=== PATIENT | female | born 1940 | race Caucasian/White ===

== ENCOUNTER → 2017-02-11 | Outpatient (CLI) | payer MEDICARE, OTHER ==
[2017-02-11 11:05] LABS: BASO # 0.1 x10^3/uL (0.0-0.2); BASO % 1 % (0-3); EOS # 0.5 x10^3/uL (0.0-0.7); EOS % 5 % (0-3); HEMATOCRIT 38.1 % (36.0-47.0); HEMOGLOBIN 12.1 g/dL (12.0-15.5); LYMPH # 1.5 x10^3/uL (1.0-4.8); LYMPH % 14 % (24-48); MEAN CORPUSCULAR HEMOGLOBIN 30 pg (25-35); MEAN CORPUSCULAR HGB CONC 32 g/dL (31-37); MEAN CORPUSCULAR VOLUME 93 fL (79-100); MONO # 0.9 x10^3/uL (0.0-1.1); MONO % 9 % (0-9); NEUT # 7.4 x10^3uL (1.8-7.7); NEUT % 72 % (31-73); PLATELET COUNT 231 x10^3/uL (140-400); RED BLOOD COUNT 4.09 x10^6/uL (3.50-5.40); RED CELL DISTRIBUTION WIDTH 16.2 % (11.5-14.5); WHITE BLOOD COUNT 10.3 x10^3/uL (4.0-11.0)
[2017-02-11 11:14] LABS: ALBUMIN 3.4 g/dL (3.4-5.0); CALCIUM 8.6 mg/dL (8.5-10.1); CREATININE 1.8 mg/dL (0.6-1.0); GFR 27.4; PHOSPHORUS 3.6 mg/dL (2.6-4.7); POTASSIUM 4.2 mmol/L (3.5-5.1)
[2017-02-12 22:08] LABS: CALCIUM PTH 8.7 mg/dL (8.7-10.3); CREATININE PTH 1.63 mg/dL (0.57-1.00); PTH INTACT 94 pg/mL (15-65)
== END | disposition home or self-care (01) ==
LOC: LAB 09:57
PROVIDERS: ATTEND Internal Medicine Nephrology
DX: I12.9 Hypertensive chronic kidney disease with stage 1 through stage 4 chronic kidney disease, or unspecified chronic kidney disease (principal); N18.3 Chronic kidney disease, stage 3 (moderate); N25.81 Secondary hyperparathyroidism of renal origin; E11.21 Type 2 diabetes mellitus with diabetic nephropathy; D63.1 Anemia in chronic kidney disease; Z68.39 Body mass index [BMI] 39.0-39.9, adult
CPT/HCPCS: 36415; 80069; 82728; 83540; 83550; 83970; 85027

== ENCOUNTER → 2017-02-11 | Outpatient (CLI) | payer MEDICARE, OTHER ==
[2017-02-11 11:13] LABS: ALBUMIN 3.4 g/dL (3.4-5.0); CALCIUM 8.6 mg/dL (8.5-10.1); CREATININE 1.8 mg/dL (0.6-1.0); GFR 27.4; POTASSIUM 4.3 mmol/L (3.5-5.1); TOTAL BILIRUBIN 0.4 mg/dL (0.2-1.0); TOTAL PROTEIN 6.7 g/dL (6.4-8.2)
== END | disposition home or self-care (01) ==
LOC: LAB 10:08
PROVIDERS: ATTEND Nurse Practitioner
DX: E78.5 Hyperlipidemia, unspecified (principal)
CPT/HCPCS: 36415; 80053; 80061

== ENCOUNTER → 2017-08-27 | Outpatient (CLI) | payer MEDICARE, OTHER ==
[2017-08-27 15:53] LABS: ALBUMIN 3.5 g/dL (3.4-5.0); CALCIUM 8.9 mg/dL (8.5-10.1); CREATININE 1.7 mg/dL (0.6-1.0); GFR 29.1; MAGNESIUM 2.1 mg/dL (1.8-2.4); PHOSPHORUS 2.9 mg/dL (2.6-4.7); POTASSIUM 4.3 mmol/L (3.5-5.1)
[2017-08-27 15:57] LABS: BASO # 0.1 x10^3/uL (0.0-0.2); BASO % 1 % (0-3); EOS # 0.3 x10^3/uL (0.0-0.7); EOS % 4 % (0-3); HEMATOCRIT 39.3 % (36.0-47.0); HEMOGLOBIN 12.8 g/dL (12.0-15.5); LYMPH # 1.8 x10^3/uL (1.0-4.8); LYMPH % 20 % (24-48); MEAN CORPUSCULAR HEMOGLOBIN 30 pg (25-35); MEAN CORPUSCULAR HGB CONC 33 g/dL (31-37); MEAN CORPUSCULAR VOLUME 92 fL (79-100); MONO # 0.7 x10^3/uL (0.0-1.1); MONO % 8 % (0-9); NEUT % 68 % (31-73); PLATELET COUNT 241 x10^3/uL (140-400); RED BLOOD COUNT 4.28 x10^6/uL (3.50-5.40); RED CELL DISTRIBUTION WIDTH 15.9 % (11.5-14.5); WHITE BLOOD COUNT 8.9 x10^3/uL (4.0-11.0)
[2017-08-28 05:09] LABS: TOTAL SERUM CREATININE 1.66 mg/dL (0.57-1.00); TOTAL URINE CREATININE 67.2 mg/dL (Not Estab.)
[2017-08-28 07:18] LABS: PROTEIN 24 HR UR <51 mg/24 hr (30-150); UR PROTEIN <4.0 mg/dL (Not Estab.)
[2017-08-28 11:12] LABS: CALCIUM PTH 9.1 mg/dL (8.7-10.3); CREATININE PTH 1.69 mg/dL (0.57-1.00); PTH INTACT 79 pg/mL (15-65)
== END | disposition home or self-care (01) ==
LOC: LAB 14:44
PROVIDERS: ATTEND Nurse Practitioner Family
DX: I12.9 Hypertensive chronic kidney disease with stage 1 through stage 4 chronic kidney disease, or unspecified chronic kidney disease (principal); E11.29 Type 2 diabetes mellitus with other diabetic kidney complication; N18.3 Chronic kidney disease, stage 3 (moderate); D63.1 Anemia in chronic kidney disease; N25.81 Secondary hyperparathyroidism of renal origin; D50.9 Iron deficiency anemia, unspecified; Z68.41 Body mass index [BMI] 40.0-44.9, adult
CPT/HCPCS: 36415; 80069; 82306; 82575; 82728; 83540; 83550; 83735; 83970; 84156; 85025

== ENCOUNTER → 2017-09-24 | Outpatient (CLI) | payer MEDICARE, OTHER ==
[2017-09-24 10:38] LABS: ALBUMIN 3.3 g/dL (3.4-5.0); CREATININE 1.7 mg/dL (0.6-1.0); GFR 29.1; POTASSIUM 4.9 mmol/L (3.5-5.1); TOTAL BILIRUBIN 0.4 mg/dL (0.2-1.0); TOTAL PROTEIN 6.6 g/dL (6.4-8.2)
== END | disposition home or self-care (01) ==
LOC: LAB 10:06
PROVIDERS: ATTEND Nurse Practitioner
DX: I12.9 Hypertensive chronic kidney disease with stage 1 through stage 4 chronic kidney disease, or unspecified chronic kidney disease (principal); E11.22 Type 2 diabetes mellitus with diabetic chronic kidney disease; N18.3 Chronic kidney disease, stage 3 (moderate); E78.5 Hyperlipidemia, unspecified
CPT/HCPCS: 36415; 80053; 80061

== ENCOUNTER → 2018-03-05 | Outpatient (CLI) | payer MEDICARE, OTHER ==
[2018-03-05 11:10] LABS: BASO % 1 % (0-3); EOS # 0.4 x10^3/uL (0.0-0.7); EOS % 6 % (0-3); HEMOGLOBIN 12.6 g/dL (12.0-15.5); LYMPH # 1.8 x10^3/uL (1.0-4.8); LYMPH % 23 % (24-48); MEAN CORPUSCULAR HEMOGLOBIN 30 pg (25-35); MEAN CORPUSCULAR HGB CONC 32 g/dL (31-37); MEAN CORPUSCULAR VOLUME 91 fL (79-100); MONO # 0.6 x10^3/uL (0.0-1.1); MONO % 8 % (0-9); NEUT # 4.7 x10^3uL (1.8-7.7); NEUT % 62 % (31-73); PLATELET COUNT 212 x10^3/uL (140-400); RED BLOOD COUNT 4.26 x10^6/uL (3.50-5.40); RED CELL DISTRIBUTION WIDTH 15.7 % (11.5-14.5); WHITE BLOOD COUNT 7.6 x10^3/uL (4.0-11.0)
[2018-03-05 11:37] LABS: ALBUMIN 3.2 g/dL (3.4-5.0); CALCIUM 8.4 mg/dL (8.5-10.1); CREATININE 1.6 mg/dL (0.6-1.0); GFR 31.3; PHOSPHORUS 3.5 mg/dL (2.6-4.7); POTASSIUM 4.6 mmol/L (3.5-5.1)
[2018-03-06 04:12] LABS: CALCIUM PTH 8.4 mg/dL (8.7-10.3); CREATININE PTH 1.53 mg/dL (0.57-1.00); PTH INTACT 73 pg/mL (15-65)
== END | disposition home or self-care (01) ==
LOC: LAB 08:38
PROVIDERS: ATTEND Internal Medicine Nephrology
DX: I12.9 Hypertensive chronic kidney disease with stage 1 through stage 4 chronic kidney disease, or unspecified chronic kidney disease (principal); E11.22 Type 2 diabetes mellitus with diabetic chronic kidney disease; N18.3 Chronic kidney disease, stage 3 (moderate); D63.1 Anemia in chronic kidney disease; N25.81 Secondary hyperparathyroidism of renal origin; E78.5 Hyperlipidemia, unspecified; E78.00 Pure hypercholesterolemia, unspecified; Z68.41 Body mass index [BMI] 40.0-44.9, adult
CPT/HCPCS: 36415; 80069; 82728; 83540; 83550; 83970; 85025

== ENCOUNTER → 2018-03-05 | Outpatient (CLI) | payer MEDICARE, OTHER ==
[2018-03-05 11:33] LABS: ALBUMIN 3.2 g/dL (3.4-5.0); CALCIUM 8.4 mg/dL (8.5-10.1); CREATININE 1.6 mg/dL (0.6-1.0); GFR 31.3; POTASSIUM 4.6 mmol/L (3.5-5.1); TOTAL BILIRUBIN 0.5 mg/dL (0.2-1.0); TOTAL PROTEIN 6.4 g/dL (6.4-8.2)
[2018-03-05 13:40] LABS: FREE T4 1.04 ng/dL (0.76-1.46); THYROID STIM HORMONE (TSH) 4.292 uIU/mL (0.358-3.740)
[2018-03-06 01:20] LABS: HEMOGLOBIN A1C 6.2 % (4.8-5.6)
== END | disposition home or self-care (01) ==
LOC: LAB 08:49
PROVIDERS: ATTEND Nurse Practitioner
DX: E78.5 Hyperlipidemia, unspecified (principal); E03.9 Hypothyroidism, unspecified; E11.9 Type 2 diabetes mellitus without complications; E78.00 Pure hypercholesterolemia, unspecified
CPT/HCPCS: 36415; 80053; 80061; 83036; 84439; 84443

== ENCOUNTER 2018-04-29 15:57 | Inpatient (IN) | payer MEDICARE, OTHER ==
[~2018-04-29] VITALS: Ht 167.6 cm; Wt 124.0 kg
--- NOTE | 2018-04-29 16:04 | PHYS DOC ---
Adult General HPI HPI Patient is a 78-year-old female history of diabetes with an insulin pump hypertension chronic kidney disease stage III who was referred from the primary care doctor's office for shortness of air since Thursday worse today room air sat was 88, treatment in the clinic came up to the low 90s got IM Solu-Medrol currently is coughing up some yellow-colored mucus no chest pain symptoms are moderate slowly worsening with time Review of Systems Review of Systems Constitutional: Night sweats Eyes: Denies change in visual acuity, redness, or eye pain [] Cardiovascular: No additional information not addressed in HPI [] GI: Denies abdominal pain, nausea, vomiting, bloody stools or diarrhea [] Musculoskeletal: Denies back pain or joint pain [] Integument: Denies rash or skin lesions [] All other systems were reviewed and found to be within normal limits, except as documented in this note. Physical Exam Physical Exam Constitutional: Well developed, well nourished, no acute distress, non-toxic appearance. [] HENT: Normocephalic, atraumatic, bilateral external ears normal, oropharynx moist, no oral exudates, nose normal. [] Eyes: PERRLA, EOMI, conjunctiva normal, no discharge. [] Neck: Normal range of motion, no tenderness, supple, no stridor. [] Cardiovascular:Heart rate regular rhythm, no murmur [] Lungs & Thorax: Bilateral wheezing noted with rhonchi. Abdomen: Bowel sounds normal, soft, no tenderness, no masses, no pulsatile masses. [] Skin: Warm, dry, no erythema, no rash. [] Back: No tenderness, no CVA tenderness. [] Extremities: No tenderness, no cyanosis, no clubbing, ROM intact, no edema. [] Neurologic: Alert and oriented X 3, normal motor function, normal sensory function, no focal deficits noted. [] Psychologic: Affect normal, judgement normal, mood normal. [] EKG EKG EKG showed a normal sinus rhythm with a rate of 76 no acute ischemic changes noted interpreted by me time of encounter.[] Radiology/Procedures Radiology/Procedures [] Impressions: omparison: None. Findings: Single view of the chest is submitted. There is no pneumothorax. There is no significant pleural fluid. There is mild hazy opacity at the left lung base and questionably on the right. The pericardial cardiac silhouette is borderline in size. Impression: 1. There is mild hazy opacity at the left lung base and questionably on the right, may be mild edema or infiltrate or atelectasis. Electronically signed by: Sahara Kidd MD (04/29/2018 4:30 PM) [id number] DICTATED AND SIGNED BY: SAHARA KIDD MD DATE: 04/29/18 1626 CC: KRYSTIN WALDEN MD; RUSSELL PILLAI PAC ~ Course & Med Decision Making Course & Med Decision Making Pertinent Labs and Imaging studies reviewed. (See chart for details) noted the x -ray noted creatinine of 1.77 []70-year-old female with a history of hypertension diabetes and chronic kidney disease presenting with shortness of breath with wheezing differential would include bronchitis pneumonia or reactive airway disease occult coronary syndrome pulmonary edema. Chest x-ray shows pneumonia patient given ceftriaxone and doxycycline as well as albuterol she was given gentle fluid hydration. She will be admitted to the service of Dr. dean for treatment of pneumonia with mild hypoxia in the clinic. Dragon Disclaimer Dragon Disclaimer This electronic medical record was generated, in whole or in part, using a voice recognition dictation system. Departure Departure: Impression: Primary Impression: Pneumonia Disposition: ADMITTED INPATIENT Admitting Physician: Theresa Dean Condition: STABLE Referrals: RUSSELL PILLAI PAC (PCP) KRYSTIN WALDEN MD Apr 29, 2018 16:04
[2018-04-29] MEDS ORDERED: IPRATRPIUM/ALBUTEROL 0.5/2.5MG 3 ML NEBU. NEB ONE (16:15)
--- NOTE | 2018-04-29 17:43 | RAD ---
PORTABLE CHEST 1V History: Shortness of air, wheezing Comparison: None. Findings: Single view of the chest is submitted. There is no pneumothorax. There is no significant pleural fluid. There is mild hazy opacity at the left lung base and questionably on the right. The pericardial cardiac silhouette is borderline in size. Impression: 1. There is mild hazy opacity at the left lung base and questionably on the right, may be mild edema or infiltrate or atelectasis. Electronically signed by: Ephraim Villalta MD (04/29/2018 4:30 PM) [id number]
[2018-04-29 17:46] LABS: ALBUMIN 3.5 g/dL (3.4-5.0); ALBUMIN/GLOBULIN RATIO 0.9 (1.0-1.7); CALCIUM 8.7 mg/dL (8.5-10.1); CREATININE 1.8 mg/dL (0.6-1.0); GFR 27.2; POTASSIUM 3.9 mmol/L (3.5-5.1); TOTAL BILIRUBIN 0.3 mg/dL (0.2-1.0); TOTAL PROTEIN 7.2 g/dL (6.4-8.2)
[2018-04-29 17:54] LABS: BASO % 1 % (0-3); EOS # 0.2 x10^3/uL (0.0-0.7); EOS % 3 % (0-3); HEMATOCRIT 40.3 % (36.0-47.0); HEMOGLOBIN 12.8 g/dL (12.0-15.5); LYMPH # 1.7 x10^3/uL (1.0-4.8); LYMPH % 23 % (24-48); MEAN CORPUSCULAR HEMOGLOBIN 30 pg (25-35); MEAN CORPUSCULAR HGB CONC 32 g/dL (31-37); MEAN CORPUSCULAR VOLUME 93 fL (79-100); MONO # 0.7 x10^3/uL (0.0-1.1); MONO % 9 % (0-9); NEUT # 4.8 x10^3uL (1.8-7.7); NEUT % 64 % (31-73); PLATELET COUNT 201 x10^3/uL (140-400); RED BLOOD COUNT 4.35 x10^6/uL (3.50-5.40); RED CELL DISTRIBUTION WIDTH 16.1 % (11.5-14.5); WHITE BLOOD COUNT 7.4 x10^3/uL (4.0-11.0)
--- NOTE | 2018-04-29 17:54 | EKG ---
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
[2018-04-29] MEDS ORDERED: IV DEXTROSE 5% 100 ML IV ONE (18:29)
[2018-04-29] MEDS ORDERED: DOXYCYCLINE HYCLATE 100 MG VIAL IV ONE (18:29)
[2018-04-29] MEDS ORDERED: cefTRIAXone SODIUM 1 GM VIAL IV ONE (18:30)
[2018-04-29] MEDS: DOXYCYCLINE HYCLATE 100 MG in IV DEXTROSE 5% 100 ML IV SCH (18:36)
[2018-04-29] MEDS: cefTRIAXone IV Push 1 GM VIAL. IVP SCH (18:36)
[2018-04-29 20:15] VITALS: BP 148/79
[2018-04-29] MEDS ORDERED: DEXTROSE 50% 25 GM / 50ML DISP.SYRIN. IV PRN (20:15)
[2018-04-29] MEDS ORDERED: INSULIN LISPRO 300 UNITS/3 ML INSULN.PEN. SQ SCH (20:30)
[2018-04-29] MEDS: IPRATRPIUM/ALBUTEROL 0.5/2.5MG 3 ML NEBU. NEB SCH (20:57)
[2018-04-29] MEDS ORDERED: LEVO75TA5 PO (21:00)
[2018-04-29] MEDS: SIMVASTATIN 20 MG TABLET PO SCH (21:00)
[2018-04-29] MEDS ORDERED: SIMV20TA3 PO (21:00)
[2018-04-29] MEDS ORDERED: PANT40TA5 PO (21:00)
[2018-04-29] MEDS ORDERED: ESCI20TA2 PO (21:00)
[2018-04-29] MEDS ORDERED: VALS1TAB27 PO (21:00)
[2018-04-29] MEDS ORDERED: ALLO100T PO (21:00)
[2018-04-29] MEDS: IV NORMAL SALINE 1,000ML 1,000 ML IV SCH (21:09)
[2018-04-29 22:34] VITALS: BP 136/75
[2018-04-30] MEDS: IPRATRPIUM/ALBUTEROL 0.5/2.5MG 3 ML NEBU. NEB SCH ×4 (05:15→20:04)
[2018-04-30] MEDS: LEVOTHYROXINE 75 MCG TABLET PO SCH (05:35)
[2018-04-30 05:56] VITALS: BP 119/68
[2018-04-30] MEDS: DOXYCYCLINE HYCLATE 100 MG in IV DEXTROSE 5% 100 ML IV SCH (06:16)
[2018-04-30 06:52] LABS: BASO % 0 % (0-3); EOS % 0 % (0-3); HEMATOCRIT 35.9 % (36.0-47.0); HEMOGLOBIN 11.7 g/dL (12.0-15.5); LYMPH # 0.8 x10^3/uL (1.0-4.8); LYMPH % 12 % (24-48); MEAN CORPUSCULAR HEMOGLOBIN 30 pg (25-35); MEAN CORPUSCULAR HGB CONC 33 g/dL (31-37); MEAN CORPUSCULAR VOLUME 93 fL (79-100); MONO # 0.2 x10^3/uL (0.0-1.1); MONO % 2 % (0-9); NEUT # 5.6 x10^3uL (1.8-7.7); NEUT % 85 % (31-73); PLATELET COUNT 179 x10^3/uL (140-400); RED BLOOD COUNT 3.88 x10^6/uL (3.50-5.40); WHITE BLOOD COUNT 6.5 x10^3/uL (4.0-11.0)
[2018-04-30 07:08] LABS: CALCIUM 8.5 mg/dL (8.5-10.1); CREATININE 1.7 mg/dL (0.6-1.0); GFR 29.1
[2018-04-30] MEDS: PANTOPRAZOLE 40 MG TABLET. PO SCH (08:30)
[2018-04-30] MEDS ORDERED: ASPI-630 PO (08:31)
[2018-04-30] MEDS: CITALOPRAM 20 MG TABLET. PO SCH (08:58)
[2018-04-30] MEDS: ACETAMINOPHEN 325 MG TABLET PO PRN ×2 (08:58→20:47)
[2018-04-30] MEDS: ASPIRIN 81 MG TAB.CHEW PO SCH (08:59)
[2018-04-30] MEDS: ALLOPURINOL 100 MG TABLET. PO SCH (08:59)
[2018-04-30] MEDS ORDERED: LOSARTAN 50 MG TABLET. PO SCH (09:00)
[2018-04-30] MEDS ORDERED: hydroCHLOROthiazide 12.5 MG CAPSULE PO SCH (09:00)
[2018-04-30] MEDS ORDERED: HYDROCHLOROTHIAZIDE PO SCH (09:00)
[2018-04-30] MEDS ORDERED: [UNRECOGNIZED DRUG - OTHER] PO SCH (09:00)
[2018-04-30] MEDS ORDERED: VALSARTAN PO SCH (09:00)
[2018-04-30 11:00] VITALS: BP 145/80
[2018-04-30] MEDS: IV NORMAL SALINE 1,000ML 1,000 ML IV SCH (13:04)
[2018-04-30] MEDS ORDERED: DEXTROSE 50% 25 GM / 50ML DISP.SYRIN. IV PRN (13:15)
--- NOTE | 2018-04-30 14:04 | HP ---
ADMIT DATE: 04/30/2018 HISTORY OF PRESENT ILLNESS: The patient is a 78-year-old female patient, who has been complaining of shortness of breath, chest pain and cough that is mostly dry as well as chest tightness and wheezing since last Thursday. Her symptoms have been steadily worsening. She was seen yesterday where her oxygen saturation was found to be only 88%. She was given intramuscular Solu-Medrol and was sent to the Emergency Room for evaluation and admission. In the Emergency Room, she apparently has had chest x-ray, which showed that there is mild hazy opacity at the left lung base and questionably on the right, which could be mild edema or infiltrate or atelectasis and she was admitted and was started on IV ceftriaxone as well as oral doxycycline. Her together with all other medication as her kidney function were abnormal we held some of her medication. PAST MEDICAL HISTORY: Significant for type 2 diabetes mellitus, hypertension, hyperlipidemia, hypothyroidism, gout, stage 4 chronic kidney disease and generalized osteoarthritis. PAST SURGICAL HISTORY: Significant for back surgery in 1999. She has also appendectomy. ALLERGIES: She has no known drug allergies. MEDICATIONS: She is currently on following medications: Simvastatin 20 mg at bedtime. She is on valsartan/hydrochlorothiazide 160/12.5 mg daily, aspirin 81 mg once a day, escitalopram oxalate 20 mg daily, Protonix 40 mg daily, levothyroxine sodium 75 mcg daily and allopurinol 100 mg once a day. FAMILY HISTORY: She is an only child, has no brothers or sisters. Her mother at age of 83. She does not know her biological father, but she knows that he is . SOCIAL HISTORY: She is for the last 59 years. She lives with her . She has 3 daughters. She has never smoked and drinks 2-3 glasses of wine every day. 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 REVIEW OF SYSTEMS: The patient denied any blurring of vision, cataract, glaucoma or macular degeneration. Denied any earache, tinnitus or sensorineural deafness. Denied any nosebleeds, stuffy nose or postnasal drip. Denied any sore throat, sore tongue, toothache, hoarseness of voice or difficulty swallowing. Denied any nausea, vomiting, diarrhea or constipation. Denied any hematemesis, melena or hematochezia. Denied any dysuria, frequency or hematuria. She did complain of chest pain during coughing. Did complain of shortness of breath, cough, which is mostly dry. Denied any scanty yellowish sputum. Denied any hemoptysis. Denied any chills, rigors or fever. PHYSICAL EXAMINATION: GENERAL: On arrival to the Emergency Room; she was slightly tachypneic, but there was no pallor, jaundice, cyanosis, or thyromegaly. No jugular venous distension. No limb edema. VITAL SIGNS: Her heart rate was 77, blood pressure 151/46, temperature was 98.6, respiratory rate and her oxygen saturation was 95% on room air. HEAD, EYES, EARS, NOSE AND THROAT: Showed normocephalic, atraumatic. NECK: Supple. HEART: Showed normal first and second heart sounds. No gallop, rub or murmur. CHEST: Shows central trachea, equal bilateral expansion, air entry, vesicular sounds with diffuse scattered rhonchi and crepitation mostly in the left side posteriorly. ABDOMEN: Distended, soft, nontender. No guarding or rigidity. No organomegaly. All hernial orifice intact. Bowel sounds normal. NEUROLOGIC: She is hard of hearing, but otherwise all cranial nerves intact. EXTREMITIES: She moves extremities without difficulty. She ambulates without assistance or assistive device. LABORATORY DATA: On admission showed that her white cell count was 7400, hemoglobin 13, hematocrit 40, MCV 93, and platelet count 201,000 with normal manual differential. Her serum sodium was 138, potassium 3.9, chloride 102, bicarbonate 26, anion gap of 10, BUN 23, creatinine 1.8, estimated GFR was 27 mL per minute. Her glucose was 378, calcium was 8.7. Total bilirubin, AST, ALT, alkaline phosphatase were normal. Her beta natriuretic peptide was 998. Total protein was 7.2, albumin was 3.5. Her prothrombin time was 9.6, INR of 0.9. IMPRESSION: The patient was basically admitted with left lower lobe pneumonia, community acquired, was started on Rocephin and doxycycline. She is known to have chronic renal failure, followed by Dr. Tamayo. She has type 2 diabetes mellitus, controlled on insulin infusion pump. PLAN: My plan is to continue with IV antibiotic. Continue with all her medication. We will hold the hydrochlorothiazide as well as valsartan for now. Continue with bronchodilator and perhaps nebulized Pulmicort. She did receive Solu-Medrol intramuscular yesterday and this is probably that what drives her blood sugar to be extremely high. We will basically discontinue her insulin infusion pump and was started on insulin sliding scale before meals and once she is home, she can go back on her insulin infusion pump. KAMINI WOODWARD MD DR: MIRTHA/camilla JOB#: [id number] / [id number]
[2018-04-30 14:39] VITALS: BP 118/65
[2018-04-30] MEDS ORDERED: INSULIN LISPRO 300 UNITS/3 ML INSULN.PEN. SQ SCH (17:00)
[2018-04-30] MEDS: INSULIN LISPRO 300 UNITS/3 ML INSULN.PEN. SQ SCH ×2 (17:02→20:53)
[2018-04-30 19:21] VITALS: BP 121/69
[2018-04-30] MEDS: cefTRIAXone IV Push 1 GM VIAL. IVP SCH (19:21)
[2018-04-30] MEDS: BUDESONIDE 0.5 MG/2 ML NEBU NEB SCH (20:04)
[2018-04-30] MEDS: LACTOBACILLUS RHAMNOSUS GG 1 CAPSULE. PO SCH (20:47)
[2018-04-30] MEDS: DOXYCYCLINE HYCLATE 100 MG TABLET PO SCH (20:47)
[2018-04-30] MEDS: MONTELUKAST 10 MG TABLET. PO SCH (20:47)
[2018-04-30] MEDS: SIMVASTATIN 20 MG TABLET PO SCH (20:47)
[2018-04-30 22:14] VITALS: BP 123/67
--- NOTE | 2018-04-30 22:33 | PN ---
DATE: 04/30/2018 SUBJECTIVE: This is a 78-year-old female patient who was seen at her primary care physician's office yesterday with a complaint of cough and shortness of breath with chest tightness. She was given Solu-Medrol intramuscular and was sent to the Emergency Room, where she was evaluated and was found to have left lower lobe pneumonia, was admitted for inpatient treatment with IV antibiotic in the form of Rocephin and doxycycline. She is known to have type 2 diabetes for which she is on insulin infusion pump. Unfortunately, her blood sugar became extremely high because of the steroids. In fact, by the time she arrived here, her blood sugar was 378 mg/dL and as of last night, her blood sugar went up to 569. She continued to have cough with scanty yellowish sputum, did have chest pain during coughing episodes, mostly in the costal margin. PHYSICAL EXAMINATION: GENERAL: When I examined her this afternoon, she looked well and was clearly in no apparent respiratory distress. There was no pallor, jaundice, cyanosis, or thyromegaly. No jugular venous distension. No limb edema. VITAL SIGNS: Her heart rate was 100, blood pressure 145/80, temperature was 98.2, respiratory rate 20, and oxygen saturation was 95% on room air. HEAD, EYES, EARS, NOSE AND THROAT: Showed normocephalic, atraumatic. NECK: Supple. HEART: Showed normal first and second heart sounds with no gallop, rub or murmur. CHEST: Shows central trachea, equal bilateral chest expansion, air entry, vesicular sounds with crepitation mostly in the left side posteriorly, she has scattered rhonchi. ABDOMEN: Distended, soft, nontender. NEUROLOGIC: She is hard of hearing. Otherwise, her cranial nerves are intact. She moves her extremities without difficulty. She ambulates without assistance or assistive devices. LABORATORY DATA: This morning showed a serum sodium 138, potassium 4, chloride 103, bicarbonate 24, anion gap of 11, BUN 31, creatinine 1.7, estimated GFR was 29 mL per minute. Her glucose was 408, calcium was 8.5. Her white cell count was 6500, hemoglobin 11.7, hematocrit 36, MCV 93, and platelet count of 179,000. Her prothrombin time was 9.6, INR of 0.9. IMPRESSION: In summary, this is a 78-year-old female patient who came in with community-acquired pneumonia. X-ray showed she has left lower lobe pneumonia with a lesser extent right lower lobe infiltrate. She was admitted and was started on antibiotic in the form of Rocephin and doxycycline for community-acquired pneumonia. She has multiple other medical problems including: A. Stage 4 chronic kidney disease. Her creatinine is 1.8.. B. Type 2 diabetes mellitus, extremely poorly controlled due to the fact that she received intramuscular Solu-Medrol. In fact, last night, her blood sugar was almost 600. I did actually ask to stop using her infusion pump and will take control of her blood sugar. I did start her on 15 units of NovoLog insulin before meals, together with sliding scale insulin. We might have to give her Levemir insulin at night time. C. Hypertension. D. Osteoarthritis. I will continue to hold her valsartan and hydrochlorothiazide as she has chronic kidney disease. I will also discontinue her IV fluids for the time being. I will repeat all her lab work tomorrow and decide on further management accordingly. KAMINI WOODWARD MD DR: MIRTHA/camilla JOB#: [id number] / [id number]
[2018-05-01] MEDS: LEVOTHYROXINE 75 MCG TABLET PO SCH (05:14)
[2018-05-01] MEDS: IPRATRPIUM/ALBUTEROL 0.5/2.5MG 3 ML NEBU. NEB SCH ×4 (05:17→21:03)
[2018-05-01 05:45] VITALS: BP 97/50
[2018-05-01 06:13] LABS: HEMATOCRIT 34.2 % (36.0-47.0); HEMOGLOBIN 10.9 g/dL (12.0-15.5); RED BLOOD COUNT 3.64 x10^6/uL (3.50-5.40); RED CELL DISTRIBUTION WIDTH 16.7 % (11.5-14.5)
[2018-05-01 06:37] LABS: WHITE BLOOD COUNT 12.7 x10^3/uL (4.0-11.0)
[2018-05-01 06:51] LABS: CALCIUM 8.2 mg/dL (8.5-10.1); CREATININE 2.1 mg/dL (0.6-1.0); GFR 22.8; POTASSIUM 4.2 mmol/L (3.5-5.1); TOTAL BILIRUBIN 0.3 mg/dL (0.2-1.0); TOTAL PROTEIN 5.9 g/dL (6.4-8.2)
[2018-05-01] MEDS: PANTOPRAZOLE 40 MG TABLET. PO SCH (07:40)
[2018-05-01] MEDS: ALLOPURINOL 100 MG TABLET. PO SCH (07:40)
[2018-05-01] MEDS: DOXYCYCLINE HYCLATE 100 MG TABLET PO SCH ×2 (07:40→20:29)
[2018-05-01] MEDS: ASPIRIN 81 MG TAB.CHEW PO SCH (07:40)
[2018-05-01] MEDS: CITALOPRAM 20 MG TABLET. PO SCH (07:40)
[2018-05-01] MEDS: LACTOBACILLUS RHAMNOSUS GG 1 CAPSULE. PO SCH ×2 (07:40→20:29)
[2018-05-01] MEDS: INSULIN LISPRO 300 UNITS/3 ML INSULN.PEN. SQ SCH ×5 (07:44→16:30)
[2018-05-01] MEDS: ACETAMINOPHEN 325 MG TABLET PO PRN ×2 (08:45→20:29)
[2018-05-01] MEDS ORDERED: IV NORMAL SALINE 1,000ML 1,000 ML IV ONE (10:15)
[2018-05-01] MEDS ORDERED: INSULIN LISPRO 300 UNITS/3 ML INSULN.PEN. SQ ONE ×2 (10:15→23:45)
[2018-05-01] MEDS: BUDESONIDE 0.5 MG/2 ML NEBU NEB SCH ×2 (10:30→21:03)
[2018-05-01 11:00] VITALS: BP 143/89
[2018-05-01] MEDS ORDERED: IV NORMAL SALINE 1,000ML 1,000 ML IV SCH (15:20)
[2018-05-01] MEDS ORDERED: ALBUTEROL SULFATE 2.5 MG/3 ML NEBU. NEB PRN (15:30)
[2018-05-01 16:00] VITALS: BP 118/71
[2018-05-01] MEDS ORDERED: INSULIN LISPRO 300 UNITS/3 ML INSULN.PEN. SQ SCH (17:00)
[2018-05-01] MEDS: cefTRIAXone IV Push 1 GM VIAL. IVP SCH (17:59)
--- NOTE | 2018-05-01 18:31 | PDOC ---
SUBJECTIVE: 78 y/o F admitted to the floor with LLL pneumonia and uncontrolled DM2. She'd been having about a week of nonproductive cough with wheezing and ALBRIGHT. Hypoxic at her doctor's office 88% on RA she was given IM solu-medrol causing elevated glucose uncontrolled with her insulin pump. She was admitted and started on IV antibiotics/fluids, as well as sliding scale insulin. RN called me at home this am to report glucose 496, I increased her SSI at lunchtime and added 1L NS IV bolus due to decreased report of urination. This afternoon I find patient sitting up in bed laughing and visiting with three family members. She reports that the fluids and tighter glycemic control have her feeling better. She says she typically has much more lower extremity edema than at present and had decreased urination yesterday. She is still very wheezy and not bringing anything up with cough, denies any new complaints. Says she finally feels "back to normal." She has remained afebrile and O2sats mid 90's on RA. OBJECTIVE: Problems: Problems Medical Problems: (1) Pneumonia Status: Acute WBC elevated overnight 12.7 from 6.5 one day prior. BUN 47, Cr 2.1 up from BUN 31, Cr 1.7 day prior. Vital Signs: Vital Signs Date Time Temp Pulse Resp B/P (MAP) Pulse Ox O2 Delivery O2 Flow Rate FiO2 05/01/18 16:21 96 Room Air 05/01/18 16:00 98.0 85 20 118/71 (87) I & O Intake and Output 05/01/18 06:59 Intake Total 2034 ml Balance 2034 ml Intake Oral 860 ml IV Total 1174 ml # Voids 6 Labs: Laboratory Tests Test 04/29/18 20:11 04/29/18 23:29 04/30/18 06:13 04/30/18 07:41 Glucose (Fingerstick) 569 mg/dL (70-99) 582 mg/dL (70-99) 420 mg/dL (70-99) White Blood Count 6.5 x10^3/uL (4.0-11.0) Red Blood Count 3.88 x10^6/uL (3.50-5.40) Hemoglobin 11.7 g/dL (12.0-15.5) Hematocrit 35.9 % (36.0-47.0) Mean Corpuscular Volume 93 fL (79-100) Mean Corpuscular Hemoglobin 30 pg (25-35) Mean Corpuscular Hemoglobin Concent 33 g/dL (31-37) Red Cell Distribution Width 16.0 % (11.5-14.5) Platelet Count 179 x10^3/uL (140-400) Neutrophils (%) (Auto) 85 % (31-73) Lymphocytes (%) (Auto) 12 % (24-48) Monocytes (%) (Auto) 2 % (0-9) Eosinophils (%) (Auto) 0 % (0-3) Basophils (%) (Auto) 0 % (0-3) Neutrophils # (Auto) 5.6 x10^3uL (1.8-7.7) Lymphocytes # (Auto) 0.8 x10^3/uL (1.0-4.8) Monocytes # (Auto) 0.2 x10^3/uL (0.0-1.1) Eosinophils # (Auto) 0.0 x10^3/uL (0.0-0.7) Basophils # (Auto) 0.0 x10^3/uL (0.0-0.2) Sodium Level 138 mmol/L (136-145) Potassium Level 4.0 mmol/L (3.5-5.1) Chloride Level 103 mmol/L (98-107) Carbon Dioxide Level 24 mmol/L (21-32) Anion Gap 11 (6-14) Blood Urea Nitrogen 31 mg/dL (7-20) Creatinine 1.7 mg/dL (0.6-1.0) Estimated GFR (Cockcroft-Gault) 29.1 Glucose Level 408 mg/dL (70-99) Calcium Level 8.5 mg/dL (8.5-10.1) Test 04/30/18 11:45 04/30/18 16:28 04/30/18 20:28 05/01/18 05:40 Glucose (Fingerstick) 485 mg/dL (70-99) 375 mg/dL (70-99) 328 mg/dL (70-99) White Blood Count 12.7 x10^3/uL (4.0-11.0) Red Blood Count 3.64 x10^6/uL (3.50-5.40) Hemoglobin 10.9 g/dL (12.0-15.5) Hematocrit 34.2 % (36.0-47.0) Mean Corpuscular Volume 94 fL (79-100) Mean Corpuscular Hemoglobin 30 pg (25-35) Mean Corpuscular Hemoglobin Concent 32 g/dL (31-37) Red Cell Distribution Width 16.7 % (11.5-14.5) Platelet Count 183 x10^3/uL (140-400) Sodium Level 139 mmol/L (136-145) Potassium Level 4.2 mmol/L (3.5-5.1) Chloride Level 104 mmol/L (98-107) Carbon Dioxide Level 26 mmol/L (21-32) Anion Gap 9 (6-14) Blood Urea Nitrogen 47 mg/dL (7-20) Creatinine 2.1 mg/dL (0.6-1.0) Estimated GFR (Cockcroft-Gault) 22.8 BUN/Creatinine Ratio 22 (6-20) Glucose Level 436 mg/dL (70-99) Calcium Level 8.2 mg/dL (8.5-10.1) Total Bilirubin 0.3 mg/dL (0.2-1.0) Aspartate Amino Transf (AST/SGOT) 28 U/L (15-37) Alanine Aminotransferase (ALT/SGPT) 24 U/L (14-59) Alkaline Phosphatase 91 U/L (46-116) Total Protein 5.9 g/dL (6.4-8.2) Albumin 3.0 g/dL (3.4-5.0) Albumin/Globulin Ratio 1.0 (1.0-1.7) Thyroid Stimulating Hormone (TSH) 3.379 uIU/mL (0.358-3.740) Test 05/01/18 07:38 05/01/18 09:47 05/01/18 10:30 05/01/18 11:03 Glucose (Fingerstick) 496 mg/dL (70-99) 541 mg/dL (70-99) 440 mg/dL (70-99) Glucose Level 496 mg/dL (70-99) Test 05/01/18 11:59 05/01/18 13:59 05/01/18 17:17 Glucose (Fingerstick) 379 mg/dL (70-99) 219 mg/dL (70-99) 42 mg/dL (70-99) Physical Exam: GEN: NAD, AOx3, sitting up laughing/visiting with family HEENT: NCAT, dry membranes oral mucosa pink, nares patent NECK: supple, nontender no rigidity or lymphadenopathy CVS: regular rate, no murmurs PULM: coarse BS with wheezes diffusely, fair air movement no respiratory distress EXT: no clubbing or cyanosis, trace pitting LE edema NEURO: CN II-XII grossly intact, no lateralizing neurodeficits ASSESSMENT: 1. Lower lobe pneumonia bilaterally 2. DM2 Uncontrolled 3. PASCALE with dehydration PLAN: Continue IV antibiotics and fluids. Increase SSI, prn albuterol nebulizer treatments added. Patient encouraged to get up in chair, ambulate frequently with assistance. Follow FSBS and am labs. SAHARA CHAO DO May 01, 2018 18:31
[2018-05-01 19:06] VITALS: BP 128/74
[2018-05-01] MEDS: SIMVASTATIN 20 MG TABLET PO SCH (20:29)
[2018-05-01] MEDS: MONTELUKAST 10 MG TABLET. PO SCH (20:29)
[2018-05-01 23:05] VITALS: BP 120/68
[2018-05-02] VITALS (12 sets, daily range): BP systolic 102–183; BP diastolic 52–89
[2018-05-02] MEDS: LEVOTHYROXINE 75 MCG TABLET PO SCH (05:14)
[2018-05-02] MEDS: ACETAMINOPHEN 325 MG TABLET PO PRN ×2 (05:14→21:34)
[2018-05-02] MEDS: IPRATRPIUM/ALBUTEROL 0.5/2.5MG 3 ML NEBU. NEB SCH ×4 (05:29→20:00)
[2018-05-02 06:39] LABS: BASO % 0 % (0-3); EOS # 0.2 x10^3/uL (0.0-0.7); EOS % 2 % (0-3); HEMATOCRIT 34.2 % (36.0-47.0); HEMOGLOBIN 10.8 g/dL (12.0-15.5); LYMPH # 1.9 x10^3/uL (1.0-4.8); LYMPH % 14 % (24-48); MEAN CORPUSCULAR HEMOGLOBIN 30 pg (25-35); MEAN CORPUSCULAR HGB CONC 32 g/dL (31-37); MEAN CORPUSCULAR VOLUME 94 fL (79-100); MONO % 7 % (0-9); NEUT # 10.2 x10^3uL (1.8-7.7); NEUT % 77 % (31-73); PLATELET COUNT 185 x10^3/uL (140-400); RED BLOOD COUNT 3.65 x10^6/uL (3.50-5.40); RED CELL DISTRIBUTION WIDTH 16.8 % (11.5-14.5); WHITE BLOOD COUNT 13.4 x10^3/uL (4.0-11.0)
[2018-05-02 06:50] LABS: ALBUMIN 2.9 g/dL (3.4-5.0); CALCIUM 8.2 mg/dL (8.5-10.1); CREATININE 1.9 mg/dL (0.6-1.0); GFR 25.6; POTASSIUM 4.2 mmol/L (3.5-5.1); TOTAL BILIRUBIN 0.3 mg/dL (0.2-1.0); TOTAL PROTEIN 5.8 g/dL (6.4-8.2)
[2018-05-02] MEDS: DOXYCYCLINE HYCLATE 100 MG TABLET PO SCH ×2 (08:15→21:29)
[2018-05-02] MEDS: PANTOPRAZOLE 40 MG TABLET. PO SCH (08:15)
[2018-05-02] MEDS: ALLOPURINOL 100 MG TABLET. PO SCH (08:15)
[2018-05-02] MEDS: ASPIRIN 81 MG TAB.CHEW PO SCH (08:15)
[2018-05-02] MEDS: CITALOPRAM 20 MG TABLET. PO SCH (08:16)
[2018-05-02] MEDS: LACTOBACILLUS RHAMNOSUS GG 1 CAPSULE. PO SCH ×2 (08:17→21:29)
[2018-05-02] MEDS: INSULIN LISPRO 300 UNITS/3 ML INSULN.PEN. SQ SCH ×5 (08:18→18:54)
[2018-05-02] MEDS ORDERED: INSULIN REGULAR VIAL 150 UNIT in 0.9 % SODIUM CHLORIDE 150ML 150 ML IV ONE (09:30)
[2018-05-02] MEDS ORDERED: ELECTROLYTE (ICU) PROTOCOL. MC PRN (09:30)
[2018-05-02] MEDS ORDERED: IV NORMAL SALINE 1,000ML 1,000 ML IV SCH (09:32)
[2018-05-02] MEDS ORDERED: DEXTROSE 50% 25 GM / 50ML DISP.SYRIN. IV PRN (09:45)
--- NOTE | 2018-05-02 09:55 | PDOC ---
SUBJECTIVE: I find the patient resting on her bed this morning. Her mood seems somewhat down and she does not appear to be as comfortable as when I saw her yesterday. Throughout questioning she complains of overall feeling weak and tired. She feels as if she has no energy. She's been eating and drinking, having bowel movements and urinating. Eyes and nose and accurately recorded the patient has gained 3 pounds in the past 3 days. She's remained afebrile with oxygen saturation running 95-96% on room air. She says she feels better for a while after breathing treatments and she starting to bring up some phlegm up when she coughs. She denies any chest pain dyspnea headache chills or sweats. She says the swelling in her legs appears to be down from baseline and she continues to feel somewhat dehydrated. OBJECTIVE: Problems: Problems Medical Problems: (1) Pneumonia Status: Acute White blood cells of increased to 13.4 from 12.7 yesterday. Anion gap is 15, WN 46 and creatinine 1.9 and despite increasing the sliding scale insulin protocol glucose 459. Blood cultures came back no growth 2 days Vital Signs: Vital Signs Date Time Temp Pulse Resp B/P (MAP) Pulse Ox O2 Delivery O2 Flow Rate FiO2 05/02/18 05:44 98.1 98 20 150/74 (99) 95 Room Air I & O Intake and Output 05/02/18 07:00 Intake Total 3367.02 ml Output Total 2 ml Balance 3365.02 ml Intake Oral 1360 ml IV Total 2007.02 ml Output Urine Total 2 ml # Voids 3 Labs: Laboratory Tests Test 04/30/18 11:45 04/30/18 16:28 04/30/18 20:28 05/01/18 05:40 Glucose (Fingerstick) 485 mg/dL (70-99) 375 mg/dL (70-99) 328 mg/dL (70-99) White Blood Count 12.7 x10^3/uL (4.0-11.0) Red Blood Count 3.64 x10^6/uL (3.50-5.40) Hemoglobin 10.9 g/dL (12.0-15.5) Hematocrit 34.2 % (36.0-47.0) Mean Corpuscular Volume 94 fL (79-100) Mean Corpuscular Hemoglobin 30 pg (25-35) Mean Corpuscular Hemoglobin Concent 32 g/dL (31-37) Red Cell Distribution Width 16.7 % (11.5-14.5) Platelet Count 183 x10^3/uL (140-400) Sodium Level 139 mmol/L (136-145) Potassium Level 4.2 mmol/L (3.5-5.1) Chloride Level 104 mmol/L (98-107) Carbon Dioxide Level 26 mmol/L (21-32) Anion Gap 9 (6-14) Blood Urea Nitrogen 47 mg/dL (7-20) Creatinine 2.1 mg/dL (0.6-1.0) Estimated GFR (Cockcroft-Gault) 22.8 BUN/Creatinine Ratio 22 (6-20) Glucose Level 436 mg/dL (70-99) Calcium Level 8.2 mg/dL (8.5-10.1) Total Bilirubin 0.3 mg/dL (0.2-1.0) Aspartate Amino Transf (AST/SGOT) 28 U/L (15-37) Alanine Aminotransferase (ALT/SGPT) 24 U/L (14-59) Alkaline Phosphatase 91 U/L (46-116) Total Protein 5.9 g/dL (6.4-8.2) Albumin 3.0 g/dL (3.4-5.0) Albumin/Globulin Ratio 1.0 (1.0-1.7) Thyroid Stimulating Hormone (TSH) 3.379 uIU/mL (0.358-3.740) Test 05/01/18 07:38 05/01/18 09:47 05/01/18 10:30 05/01/18 11:03 Glucose (Fingerstick) 496 mg/dL (70-99) 541 mg/dL (70-99) 440 mg/dL (70-99) Glucose Level 496 mg/dL (70-99) Test 05/01/18 11:59 05/01/18 13:59 05/01/18 17:17 05/01/18 18:01 Glucose (Fingerstick) 379 mg/dL (70-99) 219 mg/dL (70-99) 42 mg/dL (70-99) 90 mg/dL (70-99) Test 05/01/18 20:16 7/14/18 23:04 05/02/18 06:14 05/02/18 07:22 Glucose (Fingerstick) 213 mg/dL (70-99) 270 mg/dL (70-99) 459 mg/dL (70-99) White Blood Count 13.4 x10^3/uL (4.0-11.0) Red Blood Count 3.65 x10^6/uL (3.50-5.40) Hemoglobin 10.8 g/dL (12.0-15.5) Hematocrit 34.2 % (36.0-47.0) Mean Corpuscular Volume 94 fL (79-100) Mean Corpuscular Hemoglobin 30 pg (25-35) Mean Corpuscular Hemoglobin Concent 32 g/dL (31-37) Red Cell Distribution Width 16.8 % (11.5-14.5) Platelet Count 185 x10^3/uL (140-400) Neutrophils (%) (Auto) 77 % (31-73) Lymphocytes (%) (Auto) 14 % (24-48) Monocytes (%) (Auto) 7 % (0-9) Eosinophils (%) (Auto) 2 % (0-3) Basophils (%) (Auto) 0 % (0-3) Neutrophils # (Auto) 10.2 x10^3uL (1.8-7.7) Lymphocytes # (Auto) 1.9 x10^3/uL (1.0-4.8) Monocytes # (Auto) 1.0 x10^3/uL (0.0-1.1) Eosinophils # (Auto) 0.2 x10^3/uL (0.0-0.7) Basophils # (Auto) 0.0 x10^3/uL (0.0-0.2) Sodium Level 139 mmol/L (136-145) Potassium Level 4.2 mmol/L (3.5-5.1) Chloride Level 104 mmol/L (98-107) Carbon Dioxide Level 20 mmol/L (21-32) Anion Gap 15 (6-14) Blood Urea Nitrogen 46 mg/dL (7-20) Creatinine 1.9 mg/dL (0.6-1.0) Estimated GFR (Cockcroft-Gault) 25.6 BUN/Creatinine Ratio 24 (6-20) Glucose Level 411 mg/dL (70-99) Calcium Level 8.2 mg/dL (8.5-10.1) Total Bilirubin 0.3 mg/dL (0.2-1.0) Aspartate Amino Transf (AST/SGOT) 25 U/L (15-37) Alanine Aminotransferase (ALT/SGPT) 23 U/L (14-59) Alkaline Phosphatase 89 U/L (46-116) Total Protein 5.8 g/dL (6.4-8.2) Albumin 2.9 g/dL (3.4-5.0) Albumin/Globulin Ratio 1.0 (1.0-1.7) Physical Exam: Gen.: Alert and oriented although mood diminished from yesterday no distress HEENT: Dry mucous membranes, mild pallor oral mucosa is pink Neck: Supple nontender no significant lymphadenopathy Cardiovascular: Normal cardiac sounds no murmur Pulmonary: Persistent wheezes all lung sim with decreased breath sounds at the bases fair to good air movement no respiratory distress Abdomen: Soft nontender nondistended bowel sounds present Extremities: 1+ pitting lower extremity edema no clubbing or cyanosis Neuro: Cranial nerves II through XII appear to be intact there are no lateralizing neuro deficits ASSESSMENT: Lower lobe pneumonia bilaterally Uncontrolled diabetes with metabolic acidosis Acute kidney injury with dehydration PLAN: Insulin drip per protocol Normal saline at 150 mL an hour Repeat 2 view chest Repeat BNP SAHARA CHAO DO May 02, 2018 09:55
--- NOTE | 2018-05-02 10:27 | RAD ---
Chest, 2 views, 05/02/2018: History: Cough, congestion, shortness of breath Comparison is made to a study from 04/29/2018. The left ventricle is mildly enlarged. The pulmonary vascularity is normal. There is calcific plaquing and tortuosity of the thoracic aorta. No pulmonary infiltrate is seen. There is no evidence of pleural fluid. IMPRESSION: 1. Left ventricular enlargement and aortic atherosclerosis. 2. No acute infiltrates.
[2018-05-02] MEDS: BUDESONIDE 0.5 MG/2 ML NEBU NEB SCH ×2 (10:36→20:00)
[2018-05-02] MEDS: INSULIN REGULAR VIAL 150 UNIT in 0.9 % SODIUM CHLORIDE 150ML 150 ML IV PRN (10:38)
[2018-05-02 12:20] LABS: CREATININE 1.9 mg/dL (0.6-1.0); GFR 25.6; POTASSIUM 3.7 mmol/L (3.5-5.1)
[2018-05-02] MEDS: IV DEXTROSE 5 %-0.45 % NACL 1,000 ML IV SCH (16:15)
[2018-05-02] MEDS: cefTRIAXone IV Push 1 GM VIAL. IVP SCH (18:54)
[2018-05-02] MEDS: MONTELUKAST 10 MG TABLET. PO SCH (21:29)
[2018-05-02] MEDS: SIMVASTATIN 20 MG TABLET PO SCH (21:29)
[2018-05-03] VITALS (12 sets, daily range): BP systolic 136–167; BP diastolic 58–83
[2018-05-03] MEDS: IV DEXTROSE 5 %-0.45 % NACL 1,000 ML IV SCH ×2 (02:19→14:07)
[2018-05-03] MEDS: IPRATRPIUM/ALBUTEROL 0.5/2.5MG 3 ML NEBU. NEB SCH ×4 (05:44→20:50)
[2018-05-03 05:52] LABS: BASO # 0.1 x10^3/uL (0.0-0.2); BASO % 1 % (0-3); EOS # 0.3 x10^3/uL (0.0-0.7); EOS % 3 % (0-3); HEMOGLOBIN 10.4 g/dL (12.0-15.5); LYMPH # 1.8 x10^3/uL (1.0-4.8); LYMPH % 17 % (24-48); MEAN CORPUSCULAR HEMOGLOBIN 30 pg (25-35); MEAN CORPUSCULAR HGB CONC 33 g/dL (31-37); MEAN CORPUSCULAR VOLUME 92 fL (79-100); MONO # 0.7 x10^3/uL (0.0-1.1); MONO % 7 % (0-9); NEUT # 7.6 x10^3uL (1.8-7.7); NEUT % 72 % (31-73); PLATELET COUNT 187 x10^3/uL (140-400); RED BLOOD COUNT 3.48 x10^6/uL (3.50-5.40); RED CELL DISTRIBUTION WIDTH 16.1 % (11.5-14.5); WHITE BLOOD COUNT 10.5 x10^3/uL (4.0-11.0)
[2018-05-03 06:11] LABS: ALBUMIN 2.7 g/dL (3.4-5.0); ALBUMIN/GLOBULIN RATIO 0.9 (1.0-1.7); CALCIUM 7.8 mg/dL (8.5-10.1); CREATININE 1.7 mg/dL (0.6-1.0); GFR 29.1; POTASSIUM 3.2 mmol/L (3.5-5.1); TOTAL BILIRUBIN 0.3 mg/dL (0.2-1.0); TOTAL PROTEIN 5.6 g/dL (6.4-8.2)
[2018-05-03] MEDS: LEVOTHYROXINE 75 MCG TABLET PO SCH (06:41)
[2018-05-03] MEDS ORDERED: POTASSIUM CHLORIDE 20 MEQ TABLET.ER. PO ONE (07:00)
[2018-05-03] MEDS: INSULIN LISPRO 300 UNITS/3 ML INSULN.PEN. SQ SCH ×4 (07:30→20:47)
[2018-05-03] MEDS: LACTOBACILLUS RHAMNOSUS GG 1 CAPSULE. PO SCH ×2 (08:15→20:45)
[2018-05-03] MEDS: ALLOPURINOL 100 MG TABLET. PO SCH (08:15)
[2018-05-03] MEDS: PANTOPRAZOLE 40 MG TABLET. PO SCH (08:15)
[2018-05-03] MEDS: CITALOPRAM 20 MG TABLET. PO SCH (08:15)
[2018-05-03] MEDS: DOXYCYCLINE HYCLATE 100 MG TABLET PO SCH ×2 (08:15→20:47)
[2018-05-03] MEDS: ASPIRIN 81 MG TAB.CHEW PO SCH (08:15)
[2018-05-03] MEDS: methylPREDNISolone SOD SUCC PF 40 MG/ML VIAL. IV SCH ×2 (08:34→20:45)
[2018-05-03] MEDS ORDERED: ONDANSETRON PF 4 MG/2 ML VIAL. IV PRN (10:00)
[2018-05-03] MEDS ORDERED: ONDANSETRON PF 4 MG/2 ML VIAL. ONE (10:02)
--- NOTE | 2018-05-03 10:57 | PN ---
DATE: 05/03/2018 SUBJECTIVE: The patient was admitted originally with shortness of breath and cough. An x-ray showed that her left lower lobe infiltrate and was treated for community-acquired pneumonia with IV antibiotic in the form of Rocephin and doxycycline. Unfortunately, she was on insulin infusion pump that was discontinued and we started her on sliding scale. However, blood sugar became extremely high and she was started on insulin drip. I was hoping to treat her infection and wheezing without resorting to IV steroids; however, when I saw her this morning, she continued to have cough with chest tightness and wheezing that is audible without a stethoscope, although her chest x-ray was in fact much better than the original one on 04/29/2018. PHYSICAL EXAMINATION: GENERAL: When I examined her this morning, she was resting slightly propped up in bed, in no apparent respiratory distress. She was slightly pale, but no jaundice, cyanosis, or thyromegaly. No jugular venous distension. No limb edema. VITAL SIGNS: Her heart rate was 82, blood pressure was 141/72, temperature was 97.7, respiratory rate was 18 and oxygen saturation was 97% on room air. HEAD, EYES, EARS, NOSE AND THROAT: Showed normocephalic, atraumatic. NECK: Supple. HEART: Showed normal first and second sound. No gallop, rub or murmur. CHEST: Shows central trachea, equal bilateral expansion, air entry. Diffuse wheezing bilaterally. I could not appreciate any crepitation. ABDOMEN: Distended, soft, nontender. No guarding or rigidity. No organomegaly. All hernial orifice intact. Bowel sounds normal. NEUROLOGIC: She was awake, alert, very hard of hearing, but all other cranial nerves are intact. She moves extremities without difficulty. Her intake over the last 24 hours was 4340, no output was recorded. LABORATORY DATA: Her lab work as of this morning showed a white cell count of 10,500, hemoglobin 10, hematocrit 32, MCV 92, and platelet count of 187,000. Her chemistry showed a serum sodium 140, potassium 3.2, chloride 109, bicarbonate 24, anion gap of 7, BUN 39, creatinine 1.7, estimated GFR was 29 mL per minute. Her glucose was 130, calcium was 7.8. Total bilirubin, AST, ALT, alkaline phosphatase were normal. Her beta natriuretic peptide was 677. Total protein was 5.6, albumin was 2.7. TSH was slightly elevated at 3.379. ASSESSMENT: 1. Acute hypoxic respiratory failure. 2. Community-acquired pneumonia for which she is on Rocephin and Zithromax. 3. Severe poorly controlled diabetes with diabetic ketoacidosis for which she was started on insulin drip. PLAN: My plan is to start her on Solu-Medrol 40 mg IV q.12 hourly. Continue with the insulin drip and IV fluid for now and continue all other medication. 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 KAMINI WOODWARD MD DR: MIRTHA/camilla JOB#: [id number] / [id number]
[2018-05-03] MEDS: BUDESONIDE 0.5 MG/2 ML NEBU NEB SCH ×2 (11:10→20:50)
[2018-05-03] MEDS: cefTRIAXone IV Push 1 GM VIAL. IVP SCH (17:37)
[2018-05-03] MEDS: MONTELUKAST 10 MG TABLET. PO SCH (20:45)
[2018-05-03] MEDS: SIMVASTATIN 20 MG TABLET PO SCH (20:45)
[2018-05-03] MEDS: INSULIN REGULAR VIAL 150 UNIT in 0.9 % SODIUM CHLORIDE 150ML 150 ML IV PRN (21:49)
[2018-05-04] VITALS (9 sets, daily range): BP systolic 120–148; BP diastolic 51–64
[2018-05-04] MEDS: IV DEXTROSE 5 %-0.45 % NACL 1,000 ML IV SCH (03:10)
[2018-05-04] MEDS: IPRATRPIUM/ALBUTEROL 0.5/2.5MG 3 ML NEBU. NEB SCH ×4 (04:45→20:41)
[2018-05-04 06:27] LABS: CALCIUM 8.1 mg/dL (8.5-10.1); CREATININE 1.4 mg/dL (0.6-1.0); GFR 36.4; POTASSIUM 4.3 mmol/L (3.5-5.1)
[2018-05-04] MEDS: LEVOTHYROXINE 75 MCG TABLET PO SCH (06:27)
[2018-05-04] MEDS: INSULIN LISPRO 300 UNITS/3 ML INSULN.PEN. SQ SCH ×2 (07:30→11:30)
[2018-05-04] MEDS: DOXYCYCLINE HYCLATE 100 MG TABLET PO SCH ×2 (08:01→20:35)
[2018-05-04] MEDS: methylPREDNISolone SOD SUCC PF 40 MG/ML VIAL. IV SCH (08:01)
[2018-05-04] MEDS: ASPIRIN 81 MG TAB.CHEW PO SCH (08:01)
[2018-05-04] MEDS: PANTOPRAZOLE 40 MG TABLET. PO SCH (08:02)
[2018-05-04] MEDS: ALLOPURINOL 100 MG TABLET. PO SCH (08:02)
[2018-05-04] MEDS: LACTOBACILLUS RHAMNOSUS GG 1 CAPSULE. PO SCH ×2 (08:02→20:35)
[2018-05-04] MEDS: CITALOPRAM 20 MG TABLET. PO SCH (08:02)
[2018-05-04] MEDS: BUDESONIDE 0.5 MG/2 ML NEBU NEB SCH ×2 (09:25→20:41)
--- NOTE | 2018-05-04 14:32 | PN ---
DATE: 05/04/2018 SUBJECTIVE: The patient is sitting propped up in bed, eating her lunch comfortably, in no apparent distress. She stated she is doing much better and she continued to have a cough, but no chest tightness or wheezing. We did start her on steroids yesterday and put her back on insulin drip and her blood sugar remained reasonably controlled. OBJECTIVE: GENERAL: When I examined her this morning, she looked pale, no jaundice, cyanosis, lymphadenopathy or thyromegaly. No jugular venous distension. No limb edema. VITAL SIGNS: Her heart rate was 79, blood pressure 144/64, temperature was 98.1, respiratory rate was 18 and oxygen saturation was 98% on room air. HEAD, EYES, EARS, NOSE AND THROAT: Showed normocephalic, atraumatic. NECK: Supple. HEART: Showed normal first and second sounds. No gallop, rub or murmur. CHEST: Clear to auscultation. No crepitation or rhonchi. ABDOMEN: Distended, soft, nontender. No guarding or rigidity. No organomegaly. All hernial orifice intact. Bowel sounds normal. NEUROLOGIC: She is awake, alert, responding appropriately. All cranial nerves intact. She moves extremities without difficulty. Her intake over the last 24 hours was 4300 and no output was recorded. LABORATORY DATA: As of this morning showed a serum sodium of 139, potassium 4.3, chloride 107, bicarbonate 26, anion gap of 6, BUN 32, creatinine 1.4, estimated GFR was 36 mL per minute. Her glucose 176, calcium was 8.1. Her white cell count was 10,000, hemoglobin 10, hematocrit 32, MCV 92, and platelet count of 187,000. ASSESSMENT: 1. Acute hypoxic respiratory failure. 2. Community-acquired pneumonia, which she is on Rocephin and doxycycline for. 3. Poorly controlled type 2 diabetes with diabetic ketoacidosis, which she was started on an insulin drip for and also steroids. PLAN: To discontinue IV Solu-Medrol. Continue with the insulin drip. We will start her on a tapering course of steroids in the form prednisone starting tomorrow. I will resume her insulin infusion pump and if she remains stable, will discharge her to complete her treatment as an outpatient. KAMINI WOODWARD MD DR: MIRTHA/camilla JOB#: [id number] / [id number]
[2018-05-04] MEDS: INSULIN LISPRO 300 UNITS/3 ML INSULN.PEN. SQ PRN ×2 (15:01→16:50)
[2018-05-04] MEDS: cefTRIAXone IV Push 1 GM VIAL. IVP SCH (18:11)
[2018-05-04] MEDS: MONTELUKAST 10 MG TABLET. PO SCH (20:35)
[2018-05-04] MEDS: SIMVASTATIN 20 MG TABLET PO SCH (20:35)
[2018-05-04] MEDS: DEXTROSE 50% 25 GM / 50ML DISP.SYRIN. IV PRN (22:35)
[2018-05-05] MEDS: DEXTROSE 50% 25 GM / 50ML DISP.SYRIN. IV PRN (01:11)
[2018-05-05] MEDS: IV DEXTROSE 10% 1,000 ML IV SCH ×2 (01:51→15:05)
[2018-05-05 05:00] VITALS: BP 139/61
[2018-05-05] MEDS: IPRATRPIUM/ALBUTEROL 0.5/2.5MG 3 ML NEBU. NEB SCH ×4 (05:44→20:36)
[2018-05-05] MEDS: BUDESONIDE 0.5 MG/2 ML NEBU NEB SCH ×2 (05:44→20:37)
[2018-05-05] MEDS: PANTOPRAZOLE 40 MG TABLET. PO SCH (06:11)
[2018-05-05] MEDS: LEVOTHYROXINE 75 MCG TABLET PO SCH (06:11)
[2018-05-05 06:37] LABS: BASO # 0.1 x10^3/uL (0.0-0.2); BASO % 1 % (0-3); EOS % 0 % (0-3); HEMATOCRIT 31.9 % (36.0-47.0); HEMOGLOBIN 10.3 g/dL (12.0-15.5); LYMPH # 1.2 x10^3/uL (1.0-4.8); LYMPH % 12 % (24-48); MEAN CORPUSCULAR HEMOGLOBIN 30 pg (25-35); MEAN CORPUSCULAR HGB CONC 32 g/dL (31-37); MEAN CORPUSCULAR VOLUME 93 fL (79-100); MONO # 0.8 x10^3/uL (0.0-1.1); MONO % 7 % (0-9); NEUT # 8.6 x10^3uL (1.8-7.7); NEUT % 80 % (31-73); PLATELET COUNT 200 x10^3/uL (140-400); RED BLOOD COUNT 3.44 x10^6/uL (3.50-5.40); RED CELL DISTRIBUTION WIDTH 16.6 % (11.5-14.5); WHITE BLOOD COUNT 10.7 x10^3/uL (4.0-11.0)
[2018-05-05 06:40] LABS: CALCIUM 7.9 mg/dL (8.5-10.1); CREATININE 1.6 mg/dL (0.6-1.0); GFR 31.2; POTASSIUM 4.3 mmol/L (3.5-5.1)
[2018-05-05] MEDS: predniSONE 10 MG TABLET PO SCH (08:13)
[2018-05-05] MEDS: ALLOPURINOL 100 MG TABLET. PO SCH (08:13)
[2018-05-05] MEDS: ASPIRIN 81 MG TAB.CHEW PO SCH (08:13)
[2018-05-05] MEDS: DOXYCYCLINE HYCLATE 100 MG TABLET PO SCH ×2 (08:13→20:34)
[2018-05-05] MEDS: LACTOBACILLUS RHAMNOSUS GG 1 CAPSULE. PO SCH ×2 (08:13→20:34)
[2018-05-05] MEDS: CITALOPRAM 20 MG TABLET. PO SCH (08:13)
[2018-05-05] MEDS: INSULIN LISPRO 300 UNITS/3 ML INSULN.PEN. SQ PRN ×2 (08:19→10:12)
[2018-05-05 10:07] VITALS: BP 149/69
--- NOTE | 2018-05-05 10:25 | PN ---
DATE: 05/05/2018 SUBJECTIVE: The patient is resting slightly propped up in bed, in no apparent respiratory distress. She continued to have some cough, but no chest pain. Apparently, her blood sugar was low last night; however, this morning, her blood sugar was 392. She was given insulin sliding scale and waiting for her insulin infusion pump to be restarted. I did start tapering her steroids. OBJECTIVE: GENERAL: When I examined her today, she looked well and was clearly in no apparent respiratory distress, slightly pale, but no jaundice, cyanosis, or thyromegaly. No jugular venous distention. No lower limb edema. VITAL SIGNS: Her heart rate was 82, blood pressure was 139/61, temperature was 97.6, respiratory rate was 22 and oxygen saturation was 97% on room air. HEAD, EYES, EARS, NOSE, AND THROAT: Showed normocephalic, atraumatic. NECK: Supple. HEART: Showed normal first and second heart sounds with no gallop, rub, or murmur. CHEST: Clear to auscultation. No crepitation or rhonchi. ABDOMEN: Distended, soft, nontender. No guarding or rigidity. No organomegaly. All hernial orifices intact. Bowel sounds normal. NEUROLOGIC: She is awake, alert, responding appropriately. Her cranial nerves intact. She moves extremities without difficulty. ASSESSMENT: 1. Acute hypoxic respiratory failure, resolving. Her oxygen saturation is 98% on room air. 2. Community-acquired pneumonia for which she is on Rocephin and doxycycline. 3. Poorly controlled type 2 diabetes mellitus. 4. Hypertension. 5. Hyperlipidemia. 6. Hypothyroidism. 7. Gout. 8. Stage 4 chronic kidney disease. 9. Generalized osteoarthritis. PLAN: To continue with the insulin sliding scale. Continue with IV Rocephin and p.o. doxycycline. Her will bring her insulin infusion pump and will be started as soon as we get it here and hopefully can be discharged home on oral antibiotic and a tapering course of steroid tomorrow. KAMINI WOODWARD MD DR: MIRTHA/camilla JOB#: [id number] / [id number]
[2018-05-05] MEDS: cefTRIAXone IV Push 1 GM VIAL. IVP SCH (18:19)
[2018-05-05 18:29] VITALS: BP 142/61
[2018-05-05 20:32] VITALS: BP 153/57
[2018-05-05] MEDS: SIMVASTATIN 20 MG TABLET PO SCH (20:34)
[2018-05-05] MEDS: MONTELUKAST 10 MG TABLET. PO SCH (20:34)
[2018-05-06 02:27] VITALS: BP 170/71
[2018-05-06 04:25] VITALS: BP 169/70
[2018-05-06] MEDS: IPRATRPIUM/ALBUTEROL 0.5/2.5MG 3 ML NEBU. NEB SCH ×2 (05:11→11:06)
[2018-05-06] MEDS: BUDESONIDE 0.5 MG/2 ML NEBU NEB SCH (05:11)
[2018-05-06] MEDS: LEVOTHYROXINE 75 MCG TABLET PO SCH (05:59)
[2018-05-06] MEDS: DOXYCYCLINE HYCLATE 100 MG TABLET PO SCH (08:15)
[2018-05-06] MEDS: ALLOPURINOL 100 MG TABLET. PO SCH (08:15)
[2018-05-06] MEDS: LACTOBACILLUS RHAMNOSUS GG 1 CAPSULE. PO SCH (08:15)
[2018-05-06] MEDS: PANTOPRAZOLE 40 MG TABLET. PO SCH (08:15)
[2018-05-06] MEDS: ASPIRIN 81 MG TAB.CHEW PO SCH (08:16)
[2018-05-06] MEDS: predniSONE 10 MG TABLET PO SCH (08:16)
[2018-05-06] MEDS: CITALOPRAM 20 MG TABLET. PO SCH (08:16)
[2018-05-06 10:00] VITALS: BP 150/76
[2018-05-06] MEDS ORDERED: CEFP200T PO (10:59)
[2018-05-06] MEDS ORDERED: METH4TAB2 PO (10:59)
[2018-05-06] MEDS ORDERED: DOXY100C2 PO (10:59)
--- NOTE | 2018-05-06 12:11 | DS ---
DATE OF DISCHARGE: 05/06/2018 Addendum to discharge summary List to discharge diagnosis add: DISCHARGE DIAGNOSIS: Chronic bronchitis. KAMINI WOODWARD MD DR: MIRTHA/camilla JOB#: [id number] / [id number]
--- NOTE | 2018-05-06 12:13 | DS ---
DATE OF DISCHARGE: 05/06/2018 HOSPITAL COURSE: The patient is a 78-year-old female patient who was admitted with community-acquired pneumonia with acute hypoxic respiratory failure. She has also extremely poorly controlled type 2 diabetes. She is on insulin infusion pump, but with steroids, her blood sugar has been extremely high and therefore we started her on insulin drip to control the blood sugar and eventually put her back on her infusion pump. On questioning her today, she felt fine, she continued to have occasional cough, but denied any shortness of breath, chest tightness, or wheezing. PHYSICAL EXAMINATION: GENERAL: When I examined her, she was resting slightly propped up in bed, in no apparent respiratory distress. No pallor, jaundice, cyanosis, or thyromegaly. No jugular venous distension. No lower limb edema. VITAL SIGNS: Her heart rate was 72, blood pressure was 169/70, temperature was 98, respiratory rate was 18, and oxygen saturation was 97% on room air. HEAD, EYES, EARS, NOSE AND THROAT: Normocephalic, atraumatic. NECK: Supple. HEART: Showed normal first and second heart sounds with no gallop, rub, or murmur. CHEST: Clear to auscultation. No crepitation or rhonchi. ABDOMEN: Distended, soft, nontender. NEUROLOGIC: She is hard of hearing. Otherwise, her cranial nerves are intact. She moves extremities without difficulty. She ambulates without assistance or assistive device. LABORATORY DATA: Her lab work showed a white cell count of 10,700, hemoglobin 10, hematocrit 32, MCV 93, and platelet count of 200,000. Her chemistry showed a serum sodium 138, potassium 4.3, chloride 107, bicarbonate 26, anion gap of 5, BUN 40, creatinine 1.6. Estimated GFR was 31 mL per minute. Her glucose was 166. DISCHARGE MEDICATIONS: She will be discharged home to continue on cefpodoxime 100 mg twice a day, doxycycline 100 mg twice a day, and Medrol Dosepak. She will also be discharge on DuoNeb 4 times a day via nebulizer. Other medications include allopurinol 100 mg once a day, aspirin 81 mg once a day, escitalopram oxalate 20 mg once a day, levothyroxine sodium 75 mcg once a day, Protonix 40 mg daily, simvastatin 20 mg daily, valsartan/hydrochlorothiazide 160/12.5 mg at bedtime once a day. FINAL DISCHARGE DIAGNOSES: 1. Acute hypoxic respiratory failure, resolving. Her oxygen saturation is 97% on room air. 2. Community-acquired pneumonia for which she was discharged on Vantin and doxycycline. 3. Poorly controlled type 2 diabetes mellitus, much better controlled on her insulin infusion pump. 4. Hypertension, well controlled. 5. Hyperlipidemia. 6. Hypothyroidism. 7. Gout. 8. Stage 4 chronic kidney disease. 9. Generalized osteoarthritis. KAMINI WOODWARD MD DR: MIRTHA/camilla JOB#: [id number] / [id number]
== END 2018-05-06 11:40 | disposition home or self-care (01) | DRG 871 ==
LOC: ER 15:57 → 1 SOUTH 18:15 → ICU 05-02 13:44
PROVIDERS: ADMIT Internal Medicine; ATTEND Internal Medicine
DX: A41.9 Sepsis, unspecified organism (principal); J18.9 Pneumonia, unspecified organism; E11.10 Type 2 diabetes mellitus with ketoacidosis without coma; J96.01 Acute respiratory failure with hypoxia; N17.9 Acute kidney failure, unspecified; N18.4 Chronic kidney disease, stage 4 (severe); E03.9 Hypothyroidism, unspecified; E11.22 Type 2 diabetes mellitus with diabetic chronic kidney disease; E78.5 Hyperlipidemia, unspecified; E86.0 Dehydration; I12.9 Hypertensive chronic kidney disease with stage 1 through stage 4 chronic kidney disease, or unspecified chronic kidney disease; Z96.41 Presence of insulin pump (external) (internal); J42 Unspecified chronic bronchitis; M10.9 Gout, unspecified; M15.9 Polyosteoarthritis, unspecified; Z79.4 Long term (current) use of insulin; Z90.49 Acquired absence of other specified parts of digestive tract; Z79.82 Long term (current) use of aspirin; Z79.899 Other long term (current) drug therapy
CPT/HCPCS: 36415; 71045; 71046; 80048; 80053; 82947; 83605; 83880; 84443; 84484; 85025; 85027; 85610; 87040; 87641; 93005; 94640; J0696; J1815; J2405; J2920; J3490; J7512; J7620; J7626; 99285-25; J7030